=== PATIENT | male | born 1960 | race Caucasian/White ===

== ENCOUNTER 2023-09-10 06:31 | Day surgery (SDC) | payer BC, SELFPAY ==
[2023-09-10 12:05] VITALS: BMI 37.3
[2023-09-10 12:10] VITALS: BP 124/81
[2023-09-10 12:15] VITALS: BMI 37.3
[2023-09-10 15:31] VITALS: BP 139/96
[2023-09-10 15:45] VITALS: BP 157/93
[2023-09-10 16:00] VITALS: BP 150/92
== END 2023-09-10 16:17 | disposition home or self-care (01) ==
LOC: SDS 06:31
PROVIDERS: ATTENDING PHYSICIAN Internal Medicine Gastroenterology
DX: D12.3 Benign neoplasm of transverse colon (principal); K57.30 Diverticulosis of large intestine without perforation or abscess without bleeding; K64.0 First degree hemorrhoids; D12.2 Benign neoplasm of ascending colon; K63.5 Polyp of colon
CPT/HCPCS: 45390; 45385; 88305